=== PATIENT | male | born 1995 | race African-American/Black ===

== ENCOUNTER 2017-11-10 14:55 | Emergency (ER) | payer OTHER | END 2017-11-10 16:40 | disposition home or self-care (01) | LOC: M ED 14:55 | DX: S30.0XXA Contusion of lower back and pelvis, initial encounter (principal); W00.9XXA Unspecified fall due to ice and snow, initial encounter; Y92.89 Other specified places as the place of occurrence of the external cause; M62.830 Muscle spasm of back | CPT/HCPCS: 99282 ==